=== PATIENT | male | born 1965 | race Caucasian/White ===

== ENCOUNTER → 2020-10-08 | Outpatient (CLI) | payer OTHER, SELFPAY ==
[2020-10-08 10:37] VITALS: BMI 35.1
== END | disposition home or self-care (01) ==
LOC: LABSPEC 12:23
PROVIDERS: Referring Provider Physician Assistant Surgical; Visit Provider Physician Assistant Surgical
DX: U07.1 COVID-19 (principal)
CPT/HCPCS: 87635; U0003